=== PATIENT | female | born 2000 | race American Indian/Alaskan Native ===

== ENCOUNTER 2022-02-24 14:29 | Emergency (ER) | payer SELFPAY ==
[2022-02-24 15:01] VITALS: BP 109/69
[2022-02-24 15:22] LABS: Basophils % (Auto) 0.5 % (0.0-1.8); Eosinophils % (Auto) 0.4 % (0.0-4.3); Hemoglobin 12.6 gm/dl (10.1-14.3); Lymphocytes # (Auto) 2.2 K/mm3 (1.2-5.4); Lymphocytes % (Auto) 31.4 % (13.4-35.0); Mean Corpuscular HGB Conc 36 % (30-34); Mean Corpuscular Volume 89 fl (79-97); Monocytes # (Auto) 0.6 K/mm3 (0.0-0.8); Monocytes % (Auto) 8.5 % (0.0-7.3); Platelet Count 368 K/mm3 (140-440); Red Blood Count 3.94 M/mm3 (3.65-5.03); Red Cell Distribution Width 12.9 % (13.2-15.2)
[2022-02-24 16:01] LABS: Alanine Aminotransferase 18 units/L (7-56); Albumin 4.4 g/dL (3.9-5); Blood Urea Nitrogen 15 mg/dL (7-17); Calcium 9.7 mg/dL (8.4-10.2); Hemolysis Index 1
[2022-02-24 16:18] LABS: BUN/Creatinine Ratio 21
[2022-02-24 19:52] LABS: Bilirubin,Urine NEG (Negative); Blood,Urine NEG (Negative); Color,Urine Yellow (Yellow); Mucus,Urine 3+ /HPF; Urobilinogen,Urine < 2.0 mg/dL (<2.0)
--- NOTE | 2022-02-24 20:04 | Emergency Department Report ---
ED HPI - General Chief complaint: Abdominal Pain Stated complaint: ABDOMINA PAIN (PREG) Source: patient Mode of arrival: Ambulatory Limitations: No Limitations - History of Present Illness Initial comments: 21-year-old female presents to the ED complaining of intermittent abdominal pain x1 week. Patient states that she is 7 weeks and current evaluated by [facility]. 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 Patient states that normally when she got off work is when she feels the most pain. Patient states that this is her first . Patient denies any vaginal discharge, vaginal bleeding, or dysuria at present. No acute distress noted. No ill appearance noted. MD Complaint: abdominal pain Onset/Timin -: week(s) Radiation: none Severity: mild Consistency: intermittent Improves with: none - Related Data Previous Rx's Medication Instructions Recorded Last Taken Type Ibuprofen [Motrin 600 MG tab] 600 mg PO Q8H PRN #21 tablet 05/12/20 Unknown Rx Mupirocin [Bactroban 2% OINT] 1 applic TP TID 7 Days #1 tube 05/12/20 Unknown Rx Allergies Allergy/AdvReac Type Severity Reaction Status Date / Time No Known Allergies Allergy Unverified 05/12/20 02:47 ED Review of Systems ROS: Stated complaint: ABDOMINA PAIN (PREG) Other details as noted in HPI Constitutional: denies: chills, fever Eyes: denies: eye pain, eye discharge, vision change ENT: denies: ear pain, throat pain Respiratory: denies: cough, shortness of breath, wheezing Cardiovascular: denies: chest pain, palpitations Endocrine: no symptoms reported Gastrointestinal: abdominal pain. denies: nausea, diarrhea Genitourinary: denies: urgency, dysuria, discharge Musculoskeletal: denies: back pain, joint swelling, arthralgia Skin: denies: rash, lesions Neurological: denies: headache, weakness, paresthesias Psychiatric: denies: anxiety, depression Hematological/Lymphatic: denies: easy bleeding, easy bruising ED Past Medical Hx - Past Medical History Hx Asthma: Yes - Social History Smoking Status: Never Smoker - Medications Home Medications: Home Medications Medication Instructions Recorded Confirmed Last Taken Type Ibuprofen [Motrin 600 MG tab] 600 mg PO Q8H PRN #21 tablet 05/12/20 Unknown Rx Mupirocin [Bactroban 2% OINT] 1 applic TP TID 7 Days #1 tube 05/12/20 Unknown Rx ED Physical Exam - General Limitations: No Limitations General appearance: alert, in no apparent distress - Head Head exam: Present: atraumatic, normocephalic - Eye Eye exam: Present: normal appearance - ENT ENT exam: Present: mucous membranes moist - Neck Neck exam: Present: normal inspection - Respiratory Respiratory exam: Present: normal lung sounds bilaterally. Absent: respiratory distress - Cardiovascular Cardiovascular Exam: Present: regular rate, normal rhythm. Absent: systolic murmur, diastolic murmur, rubs, gallop - GI/Abdominal GI/Abdominal exam: Present: soft, normal bowel sounds - Extremities Exam Extremities exam: Present: normal inspection - Back Exam Back exam: Present: normal inspection - Neurological Exam Neurological exam: Present: alert, oriented X3 - Psychiatric Psychiatric exam: Present: normal affect, normal mood - Skin Skin exam: Present: warm, dry, intact, normal color. Absent: rash ED Course Vital Signs 02/24/22 14:59 Temperature 98.9 F Pulse Rate 84 Respiratory 18 Rate Blood Pressure 109/69 O2 Sat by Pulse 99 Oximetry ED Medical Decision Making - Lab Data Result diagrams: 02/24/22 15:04 02/24/22 15:04 - Medical Decision Making 21-year-old female presents to the ED complaining of intermittent abdominal pain x1 week. Patient states that she is 7 weeks and current evaluated by [facility]. 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 Patient states that normally when she got off work is when she feels the most pain. Patient states that this is her first . Patient denies any vaginal discharge, vaginal bleeding, or dysuria at present. No acute distress noted. No ill appearance noted. Rechecked the patient is resting quietly quietly and comfortable and feeling bet ter. I discussed the results of diagnostic study, my clinical impression and the plan for further treatment with the patient. Patient agrees with plan and discharge at this present time. All question addressed. I have given the patient instruction regarding a diagnosis ,expectation ,follow- up and return precaution. I explained to the patient that emergent condition may arise and to return to the ED for new worsen and any new persisting condition. I have explained the importance of following up with the primary care physician or referral physician listed below has instructed. The patient verbalized understanding of discharge instruction. Critical care attestation.: If time is entered above; I have spent that time in minutes in the direct care of this critically ill patient, excluding procedure time. ED Disposition Clinical Impression: Qualifiers: Weeks of gestation: less than 8 weeks Qualified Code(s): Z3A.01 - Less than 8 weeks gestation of Disposition: HOME / SELF CARE / HOMELESS Is pt being admited?: No Does the pt Need Aspirin: No Condition: Stable Instructions: Abdominal Pain (ED), How a Baby Grows During Additional Instructions: Follow-up with [facility] Return to the ED for any worsening symptoms such as vaginal bleed or abdominal cramping May take [id number] Tylenol as needed Referrals: [facility] [Provider Group] - 3-5 Days Forms: Work/School Release Form(ED) Time of Disposition: 20:06
== END 2022-02-24 16:00 | disposition home or self-care (01) ==
LOC: ED 14:29
DX: O26.891 Other specified pregnancy related conditions, first trimester (principal); R10.9 Unspecified abdominal pain; Z3A.08 8 weeks gestation of pregnancy; J45.909 Unspecified asthma, uncomplicated; Z79.899 Other long term (current) drug therapy
CPT/HCPCS: 36415; 80053; 81001; 84703; 85025; 99283

== ENCOUNTER 2022-05-28 21:40 | Outpatient (CLI) | payer OTHER ==
--- NOTE | 2022-05-28 23:31 | Ultrasound Report ---
ULTRASOUND OBSTETRIC LIMITED INDICATION / CLINICAL INFORMATION: CERVICAL LENGTH, EFW. Clinical Gestational Age (GA) in weeks, days: 20 weeks 5 days TECHNIQUE: Transabdominal. COMPARISON: None available. FINDINGS: Single live intrauterine . measurements correspond to a gestational age of 1 9 weeks and 1 day. Estimated weight of 288 g. HEART RATE (beats per minute): 141 PRESENTATION: Breech. ADDITIONAL FINDINGS: Amniotic fluid is subjectively normal. Cervix measures 3.3 cm. The cervical os i s closed. IMPRESSION: 1. Single live intrauterine with ultrasound age of 19 weeks and 1 day. Estimated weig ht of 288 g. 2. No significant abnormality. 3. Cervix measures 3.3 cm. The cervical os is closed. Signer Name: Jason Avina MD Signed: 05/28/2022 11:26 PM Workstation Name: [id number]
== END 2022-05-28 23:34 | disposition home or self-care (01) ==
LOC: TRG 21:40 → APU 21:42 → TRG 23:34
PROVIDERS: ATTEND Obstetrics & Gynecology Gynecology
DX: O46.92 Antepartum hemorrhage, unspecified, second trimester (principal); Z3A.20 20 weeks gestation of pregnancy
CPT/HCPCS: 76816

== ENCOUNTER 2022-07-16 22:05 | Emergency (ER) | payer OTHER ==
[2022-07-16 23:27] LABS: Hematocrit 38.5 % (30.3-42.9); Hemoglobin 13.7 gm/dl (10.1-14.3); Mean Corpuscular HGB Conc 36 % (30-34); Mean Corpuscular Volume 92 fl (79-97); Platelet Count 292 K/mm3 (140-440); Red Cell Distribution Width 13.2 % (13.2-15.2)
[2022-07-16 23:36] LABS: Alanine Aminotransferase 28 units/L (7-56); Albumin 4.2 g/dL (3.9-5); BUN/Creatinine Ratio 14; Blood Urea Nitrogen 13 mg/dL (7-17); Calcium 9.8 mg/dL (8.4-10.2); Hemolysis Index 6
[2022-07-17 02:55] LABS: HCG Qualitative,Urine Positive (Negative)
[2022-07-17 06:56] LABS: INR 0.8 (0.87-1.13)
[2022-07-17 07:16] LABS: Bilirubin,Urine NEG (Negative); Blood,Urine NEG (Negative); Color,Urine Yellow (Yellow); Urobilinogen,Urine < 2 mg/dL (<2.0)
[2022-07-17 07:17] LABS: Mucus,Urine 1+ /HPF
[2022-07-17 08:01] VITALS: BP 137/65
--- NOTE | 2022-07-17 08:19 | Emergency Department Report ---
ED General Adult HPI - General Chief complaint: High BP Stated complaint: HBP/HEART RATE/ Time Seen by Provider: 07/17/22 06:28 Source: patient Mode of arrival: Ambulatory Limitations: No Limitations - History of Present Illness Initial comments: 27-year-old G1 para 0 -[place] female who complain that she had a elevated blood pressure when checked denies any fever chills or trauma. Patient admits that she has little bit of a headache patient. -: Gradual Location: head Radiation: non-radiation Severity scale (0 -10): 7 Quality: aching Consistency: intermittent Improves with: none Associated Symptoms: denies other symptoms Treatments Prior to Arrival: none - Related Data Previous Rx's Medication Instructions Recorded Last Taken Type Ibuprofen [Motrin 600 MG tab] 600 mg PO Q8H PRN #21 tablet 05/12/20 Unknown Rx Mupirocin [Bactroban 2% OINT] 1 applic TP TID 7 Days #1 tube 05/12/20 Unknown Rx Allergies Allergy/AdvReac Type Severity Reaction Status Date / Time No Known Allergies Allergy Unverified 05/12/20 02:47 ED Review of Systems ROS: Stated complaint: HBP/HEART RATE/ Other details as noted in HPI Constitutional: denies: chills, fever Eyes: denies: eye pain, eye discharge, vision change ENT: denies: ear pain, throat pain Respiratory: denies: cough, shortness of breath, wheezing Cardiovascular: denies: chest pain, palpitations Endocrine: no symptoms reported Gastrointestinal: denies: abdominal pain, nausea, diarrhea Genitourinary: denies: urgency, dysuria, discharge Musculoskeletal: denies: back pain, joint swelling, arthralgia Skin: denies: rash, lesions Neurological: headache. denies: weakness, paresthesias Psychiatric: denies: anxiety, depression Hematological/Lymphatic: denies: easy bleeding, easy bruising ED Past Medical Hx - Past Medical History Previous Medical History?: No Hx Hypertension: No Hx Diabetes: No Hx Deep Vein Thrombosis: No Hx Renal Disease: No Hx Sickle Cell Disease: No Hx Seizures: No Hx Asthma: No Hx HIV: No - Surgical History Past Surgical History?: No - Social History Smoking Status: Never Smoker Substance Use Type: None - Medications Home Medications: Home Medications Medication Instructions Recorded Confirmed Last Taken Type Ibuprofen [Motrin 600 MG tab] 600 mg PO Q8H PRN #21 tablet 05/12/20 Unknown Rx Mupirocin [Bactroban 2% OINT] 1 applic TP TID 7 Days #1 tube 05/12/20 Unknown Rx ED Physical Exam - General Limitations: No Limitations General appearance: alert, in no apparent distress - Head Head exam: Present: atraumatic, normocephalic - Eye Eye exam: Present: normal appearance, PERRL - ENT ENT exam: Present: normal exam, normal orophraynx, mucous membranes moist - Neck Neck exam: Present: normal inspection, full ROM. Absent: tenderness - Respiratory Respiratory exam: Present: normal lung sounds bilaterally. Absent: respiratory distress - Cardiovascular Cardiovascular Exam: Present: regular rate, normal rhythm. Absent: systolic murmur, diastolic murmur, rubs, gallop - GI/Abdominal GI/Abdominal exam: Present: soft, normal bowel sounds, other (Gravid) - Extremities Exam Extremities exam: Present: normal inspection, full ROM - Back Exam Back exam: Present: normal inspection, full ROM - Neurological Exam Neurological exam: Present: alert, oriented X3, CN II-XII intact, normal gait - Psychiatric Psychiatric exam: Present: normal affect, normal mood - Skin Skin exam: Present: warm, dry, intact, normal color. Absent: rash ED Course Vital Signs 07/16/22 07/17/22 07/17/22 22:39 02:43 06:39 Temperature 98.7 F 98.5 F Pulse Rate 78 79 74 Respiratory 16 18 18 Rate Blood Pressure 157/101 154/101 147/95 [Right] O2 Sat by Pulse 98 100 100 Oximetry 07/17/22 07:59 Temperature Pulse Rate 74 Respiratory 18 Rate Blood Pressure 137/65 [Right] O2 Sat by Pulse 99 Oximetry ED Medical Decision Making - Lab Data Result diagrams: 07/16/22 22:56 07/16/22 22:56 - Medical Decision Making Patient refused CAT scan. Advised patient of risks advised patient must see COMPETITIVE INTELLIGENCE ANALYST this week discussed with COMPETITIVE INTELLIGENCE ANALYST at her GYNs office Critical care attestation.: If time is entered above; I have spent that time in minutes in the direct care of this critically ill patient, excluding procedure time. ED Disposition Clinical Impression: Hypertension Disposition: 01 HOME / SELF CARE / HOMELESS Is pt being admited?: No Does the pt Need Aspirin: No Condition: Stable Instructions: Hypertension (ED), Hypertension, Adult, Hypertension During , [id number] Additional Instructions: Must see your COMPETITIVE INTELLIGENCE ANALYST this week.
--- NOTE | 2022-07-18 11:54 | Electrocardiograph Report ---
[facility] Test Date: 2022-07-16 Test Time: 22:45:01 Pat Name: PB REN Department: Room: Gender: F Business Dean: EMERY : 2000 Requested By: BRENDA ANGULO Order Number: [id number] Reading MD: Wiley Nava Measurements Intervals Ulen Rate: 67 P: 41 TN: 116 QRS: 35 QRSD: 73 T: 51 QT: 392 QTc: 413 Interpretive Statements Sinus rhythm Low voltage, precordial leads Abnormal Q suggests anterior infarct No previous ECG available for comparison Electronically Signed On 07-18-2022 8:53:42 PDT by Wiley Nava
== END 2022-07-17 08:49 | disposition home or self-care (01) ==
LOC: ED 22:05
DX: I10 Essential (primary) hypertension (principal); Z79.899 Other long term (current) drug therapy; R79.1 Abnormal coagulation profile
CPT/HCPCS: 36415; 80053; 81001; 81025; 82550; 84484; 84550; 85027; 85610; 93005; 99283